=== PATIENT | male | born 1935 ===

== ENCOUNTER 2016-10-11 05:06 | Observation (INO) | payer MEDICARE, OTHER ==
--- NOTE | 2016-10-11 06:10 | C.PDOC ---
History Of Present Illness <Christine Patton - Last Filed: 10/11/16 06:32> <Bria Montoya - Last Filed: 10/11/16 13:11> The patient and son reports that the patient tripped and fell today at 3am. The patient reports that he was walking fast to the bathroom and tripped in the dark. Patient is unsure if there was LOC, but now complains of head and neck pain. Denies dizziness, chest pain, SOB, nausea, vomiting, numbness, weakness. (Christine Patton) - HPI History Per: Patient, Family (Son) History/Exam Limitations: no limitations Injury Occurred (Timing): Hours Ago: (3) Severity: Mild Pain Scale Rating Of: 5 Recent travel outside of the [place]: No <Christine Patton - Last Filed: 10/11/16 06:32> <Bria Montoya - Last Filed: 10/11/16 13:11> - HPI Time Seen by Provider: 10/11/16 05:29 Chief Complaint (Nursing): Trauma Past Medical History - Medical History PMH: Benign Prostatic Hyperplasia, HTN, Hypercholesterolemia Family History: States: No Known Family Hx - Social History Hx Alcohol Use: No Hx Substance Use: No - Immunization History Hx Tetanus Toxoid Vaccination: No Hx Influenza Vaccination: No Hx Pneumococcal Vaccination: No <Christine Patton - Last Filed: 10/11/16 06:32> Review Of Systems Except As Marked, All Systems Reviewed And Found Negative. <Christine Patton - Last Filed: 10/11/16 06:32> Physical Exam - Physical Exam Appears: Non-toxic, No Acute Distress Skin: Normal Color, Warm, No Rash Eye(s): bilateral: Normal Inspection, PERRL, EOMI Ear(s): Bilateral: Normal Nose: No Discharge, Epistaxis (dried blood to right nare. No active bleeding, no bleeding site identified. ), No Septal Hematoma, Other ((+) superficial laceration to the nasal bridge with tenderness) Oral Mucosa: Moist Tongue: Normal Appearing Lips: Normal Appearing Throat: Normal, No Erythema, No Exudate Neck: Normal ROM, No Midline Cervical Tenderness, Paracervical Tenderness ( right sided), No Step Off Deformity, Supple Chest: Symmetrical, No Tenderness Cardiovascular: Rhythm Regular, No Friction Rub, No Murmur Respiratory: Normal Breath Sounds, No Rales, No Rhonchi, No Wheezing Gastrointestinal/Abdominal: Soft, No Tenderness, No Organomegaly, No Guarding, No Hernia Back: Normal Inspection, No CVA Tenderness, No Vertebral Tenderness, No Paraspinal Tenderness Extremity: Normal ROM, No Tenderness, No Swelling Pulses: Left Dorsalis Pedis: Normal, Right Dorsalis Pedis: Normal Neurological/Psych: Oriented x3, Normal Speech, Normal Cranial Nerves, Normal Motor Gait: Steady <Christine Patton - Last Filed: 10/11/16 06:32> ED Course And Treatment O2 Sat by Pulse Oximetry: 98 (on RA) Pulse Ox Interpretation: Normal <Christine Patton - Last Filed: 10/11/16 06:32> - Other Rad Cervical spine CT X-Ray: Viewed By Me, Read By Radiologist Interpretation: Impression: No acute findings. Cervical spine degeneration, no critical spinal canal narrowing. Head CT X-Ray: Viewed By Me, Read By Radiologist Interpretation: FINDINGS: HEMORRHAGE: No intracranial hemorrhage. BRAIN: Powers-white matter differentiation is preserved. There is no mass, mass effect or abnormal extra-axial fluid collection. VENTRICLES: There is mild age- related global parenchymal volume loss and proportionate enlargement of the ventricles and cortical sulci. CALVARIUM: There is no calvarial fracture or extracranial soft tissue swelling. PARANASAL SINUSES: There is near complete opacification of the left maxillary sinus with osteoneogenesis. There is mild mucoperiosteal thickening in the right maxillary sinus. The remaining included paranasal sinuses cells are predominantly clear. MASTOID AIR CELLS: The mastoid air cells are predominantly clear. OTHER FINDINGS: None. IMPRESSION: No acute intracranial abnormality. Mild age-related global parenchymal volume loss. <Bria Montoya - Last Filed: 10/11/16 13:11> ED OBSERVATION Date of observation admission: 10/11/16 Time of observation admission: 06:00 <Christine Patton - Last Filed: 10/11/16 06:32> Discharge: Yes <Bria Montoya Last Filed: 10/11/16 13:11> - Observation admission statement Patient is being placed in observation because:: head and neck trauma. The patient is being observed for neurological changes. ( Christine Patton) - Goals of Observation Goals of observation are:: Repeat CT at the 6 hours, as the patient is on plavix. (Christine Patton) - Progress Note Progress Note: 10/11/16 06:33 On first re-exam, the patient reports that his pain has improved but still there. The patient is being observed and repeat CT scan is ordered as patient is on anti-platelet medications plavix which put him at risk for re-bleeding. ( Christine Patton) 10/11/16 07:05 Patient was signed out to me and is under observation for head injury on anti- platelet medication. will observe for any neurological changes and repeat CT imaging at noon, 6 hours after initial study. 10/11/16 07:22 Patient is hungry, breakfast tray was ordered. 10/11/16 11:05 Patient remains alert and oriented, tolerated breakfast. Patient resting comfortably in no distress, CT pending at noon 10/11/16 12:00 CT ordered 10/11/16 12:37 CT Report by MARLENA MACHADO MD PROCEDURE: CT HEAD WITHOUT CONTRAST. HISTORY: f/u CT s.p injury and on plavix, ro bleed COMPARISON: None available. TECHNIQUE: Axial computed tomography images were obtained through the head/ brain without intravenous contrast. Radiation dose: Total exam DLP = 1009.77 mGy-cm. This CT exam was performed using one or more of the following dose reduction techniques: Automated exposure control, adjustment of the mA and/or kV according to patient size, and/or use of iterative reconstruction technique. FINDINGS: HEMORRHAGE: No intracranial hemorrhage. BRAIN: Powers white matter differentiation is preserved. There is no mass, mass effect or extra axial fluid collection. VENTRICLES: There is mild age related global parenchymal volume loss and proportionate enlargement of the ventricles and cortical sulci. CALVARIUM: Unremarkable. PARANASAL SINUSES: Redemonstration of chronic left maxillary sinusitis. Mild chronic right maxillary sinusitis.The remaining paranasal sinuses are clear as visualized. No significant inflammatory changes. MASTOID AIR CELLS: Unremarkable as visualized. No inflammatory changes. OTHER FINDINGS: None. IMPRESSION: No acute intracranial hemorrhage. Mild age related global parenchymal volume loss. 10/11/16 12:40 Patient remains alert and oriented GCS 15. Discussed results with patient, and copy of report was provided. Family at bedside and comfortable taking patient home. Recommend follow up with PCP, and discuss any signs of concern to return to ER (Bria Montoya) Disposition <Christine Patton - Last Filed: 10/11/16 06:32> Counseled Patient/Family Regarding: Need For Followup - Disposition Disposition Time: 12:41 - POA Present On Arrival: Falls Or Trauma <Bria Montoya - Last Filed: 10/11/16 13:11> - Disposition Disposition: HOME/ ROUTINE Condition: STABLE - Clinical Impression Clinical Impression: Closed head injury, Nasal bone fracture Critical Care Time Physician Patient Turnover Patient Signed Over To: Bria Montoya ([email or web address]) Handoff Comments: Pending repeat CT scan and disposition <Christine Patton - Last Filed: 10/11/16 06:32>
[2016-10-11] MEDS ORDERED: Bacitracin Ointment 30 GM TUBE TOP ONE (06:31)
[2016-10-11] MEDS ORDERED: Bacitracin 500 Units/gm Oint Foilpak UD ONE (06:31)
[2016-10-11 07:04] VITALS: RESP 18
--- NOTE | 2016-10-11 08:12 | CT ---
PROCEDURE: CT HEAD WITHOUT CONTRAST. HISTORY: Head injury COMPARISON: None available. TECHNIQUE: Axial computed tomography images were obtained through the head/brain without intravenous contrast. Radiation dose: Total exam DLP = 890.68 mGy-cm. This CT exam was performed using one or more of the following dose reduction techniques: Automated exposure control, adjustment of the mA and/or kV according to patient size, and/or use of iterative reconstruction technique. FINDINGS: HEMORRHAGE: No intracranial hemorrhage. BRAIN: Powers-white matter differentiation is preserved. There is no mass, mass effect or abnormal extra-axial fluid collection. VENTRICLES: There is mild age-related global parenchymal volume loss and proportionate enlargement of the ventricles and cortical sulci. CALVARIUM: There is no calvarial fracture or extracranial soft tissue swelling. PARANASAL SINUSES: There is near complete opacification of the left maxillary sinus with osteoneogenesis. There is mild mucoperiosteal thickening in the right maxillary sinus. The remaining included paranasal sinuses cells are predominantly clear. MASTOID AIR CELLS: The mastoid air cells are predominantly clear. OTHER FINDINGS: None. IMPRESSION: No acute intracranial abnormality. Mild age-related global parenchymal volume loss.
--- NOTE | 2016-10-11 12:35 | CT ---
PROCEDURE: CT HEAD WITHOUT CONTRAST. HISTORY: f/u CT s.p injury and on plavix, ro bleed COMPARISON: None available. TECHNIQUE: Axial computed tomography images were obtained through the head/brain without intravenous contrast. Radiation dose: Total exam DLP = 1009.77 mGy-cm. This CT exam was performed using one or more of the following dose reduction techniques: Automated exposure control, adjustment of the mA and/or kV according to patient size, and/or use of iterative reconstruction technique. FINDINGS: HEMORRHAGE: No intracranial hemorrhage. BRAIN: Powers white matter differentiation is preserved. There is no mass, mass effect or extra axial fluid collection. VENTRICLES: There is mild age related global parenchymal volume loss and proportionate enlargement of the ventricles and cortical sulci. CALVARIUM: Unremarkable. PARANASAL SINUSES: Redemonstration of chronic left maxillary sinusitis. Mild chronic right maxillary sinusitis.The remaining paranasal sinuses are clear as visualized. No significant inflammatory changes. MASTOID AIR CELLS: Unremarkable as visualized. No inflammatory changes. OTHER FINDINGS: None. IMPRESSION: No acute intracranial hemorrhage. Mild age related global parenchymal volume loss.
[2016-10-11 13:03] VITALS: BP 125/76; PULSE 63; TEMP 98.1; O2SAT 97
--- NOTE | 2016-10-12 11:47 | CT ---
PROCEDURE: CT Cervical Spine without contrast HISTORY: Trauma COMPARISON: None available. TECHNIQUE: Axial computed tomography images were obtained of the cervical spine without the use of intravenous contrast. Coronal and sagittal reformatted images were created and reviewed. Radiation dose: Total exam DLP = 677.84 MGy-cm. This CT exam was performed using one or more of the following dose reduction techniques: Automated exposure control, adjustment of the mA and/or kV according to patient size, and/or use of iterative reconstruction technique. FINDINGS: VERTEBRAE: There is mild reversal of the cervical spine with loss of normal cervical lordosis. Vertebral alignment is normal. Vertebral height is maintained. There is no acute fracture or traumatic anterior listhesis. The craniocervical junction is normal. The atlantoaxial joint is normal. DISCS/SPINAL CANAL/NEURAL FORAMINA: There is mild multilevel degenerative disc disease due to combination of disc osteophyte complexes, uncovertebral joint hypertrophy and multilevel facet arthropathy, worse at C6-7 with moderate right and [id number] left neural foraminal stenosis. No spinal canal stenosis. PARASPINAL SOFT TISSUES: Unremarkable. OTHER FINDINGS: None. IMPRESSION: No acute fracture or traumatic anterior listhesis. A preliminary report was provided by [employer].
== END 2016-10-11 12:47 | disposition home or self-care (01) ==
LOC: C.ER 05:06 → C.9OBSV 06:32
PROVIDERS: ADMIT Emergency Medicine; ATTEND Emergency Medicine
DX: S09.90XA Unspecified injury of head, initial encounter (principal); S02.2XXA Fracture of nasal bones, initial encounter for closed fracture; W01.0XXA Fall on same level from slipping, tripping and stumbling without subsequent striking against object, initial encounter; M54.2 Cervicalgia; N40.0 Benign prostatic hyperplasia without lower urinary tract symptoms; I10 Essential (primary) hypertension; E78.00 Pure hypercholesterolemia, unspecified
CPT/HCPCS: 70450; 72125; 99285; G0378